=== PATIENT | male | born 1985 | race Caucasian/White ===

== ENCOUNTER 2017-10-20 00:45 | Emergency (ER) | payer OTHER ==
[~2017-10-20] VITALS: Ht 180.3 cm; Wt 74.8 kg
[2017-10-20 00:48] VITALS: BP 157/80
--- NOTE | 2017-10-20 00:53 | NUR ---
TO ER BED 11
--- NOTE | 2017-10-20 01:00 | NUR ---
came in with c/o rt rib pain, 30 minutes ago, s/p hit by the sink.
[2017-10-20] MEDS ORDERED: KETOROLAC 60 MG/2 ML VIAL IM ONE (01:25)
[2017-10-20 03:10] VITALS: BP 124/78
--- NOTE | 2017-10-20 03:10 | NUR ---
Patient discharged with v/s stable. Written and verbal after care instructions given and explained DR. lang Patient alert, oriented and verbalized understanding of instructions. Ambulatory with steady gait. All questions addressed prior to discharge. ID band removed. Patient advised to follow up with PMD. Rx of NAPROSYN 500MG. given. Patient educated on indication of medication including possible reaction and side effects. Opportunity to ask questions provided and answered.
== END 2017-10-20 03:10 | disposition home or self-care (01) ==
LOC: MED 00:45
DX: S20.211A Contusion of right front wall of thorax, initial encounter (principal); W01.0XXA Fall on same level from slipping, tripping and stumbling without subsequent striking against object, initial encounter; Y93.89 Activity, other specified; Y99.8 Other external cause status; Y92.098 Other place in other non-institutional residence as the place of occurrence of the external cause
CPT/HCPCS: 71250; 96372; 99284; J1885